=== PATIENT | male | born 1985 | race Caucasian/White ===

== ENCOUNTER → 2020-10-18 15:11 | Outpatient (CLI) | payer OTHER, SELFPAY ==
[2020-10-18 15:09] VITALS: BMI 33.6
[2020-10-18 18:55] LABS: HIV - WCH Non-Reactive (Nonreactive)
[2020-10-21 08:07] LABS: Hepatitis A IgM Antibody Negative (Negative)
[2020-10-21 16:22] LABS: Hepatitis B Core AB IgM Negative (Negative)
== END ==
PROVIDERS: Referring Provider Physician Assistant Surgical; Visit Provider Physician Assistant Surgical
DX: Z77.21 Contact with and (suspected) exposure to potentially hazardous body fluids (principal); W46.1XXA Contact with contaminated hypodermic needle, initial encounter
CPT/HCPCS: 36415; 86703; 86705; 86709

== ENCOUNTER → 2025-03-22 | Outpatient (CLI) | payer BC, SELFPAY ==
[2025-03-22 09:38] LABS: AST(SGOT) 24 U/L (<=37); Alanine Aminotransfer ALT/SGPT 28 U/L (<=46); Albumin, Serum 4.4 g/dL (3.5-5.0); Alkaline Phosphatase 62 U/L (40-129); Anion Gap 12 (5-15); BUN 15 mg/dL (4-19); BUN/Creat Ratio 16.0 RATIO (10-20); Calcium,Total 9.7 mg/dL (7.6-11.0); Carbon Dioxide 23.1 mmol/L (21.0-32.0); Chloride 106 mmol/L (98-108); Cholesterol 164 mg/dL (<=200); Globulin 2.8 g/dL (2.2-4.2); Glucose 103 mg/dL (70-99); Low Density Lipoprotein Calc. 96 mg/dL; Potassium 4.2 mmol/L (3.3-5.1); Triglycerides 125 mg/dL; Very Low Density Lipoprotein 25 mg/dL (5-40); Vitamin B12 373 pg/mL (180-914); cholesterol:hdl ratio screen 3.83
[2025-03-23 16:09] LABS: ANTINUCLEAR ANTIBODIES DIRECT Negative (Negative)
== END | disposition home or self-care (01) ==
PROVIDERS: PCP Internal Medicine; Referring Provider Internal Medicine; Visit Provider Internal Medicine
DX: Z00.00 Encounter for general adult medical examination without abnormal findings (principal); R20.2 Paresthesia of skin; M25.50 Pain in unspecified joint; Z13.220 Encounter for screening for lipoid disorders
CPT/HCPCS: 36415; 80053; 80061; 82607; 83036; 84439; 84443; 86038; 86225; 86431